=== PATIENT | male | born 1955 | race Caucasian/White ===

== ENCOUNTER 2023-03-24 13:08 | Emergency (ER) | payer MEDICARE ==
[~2023-03-24] VITALS: Ht 177.8 cm; Wt 75.0 kg
[2023-03-24 13:14] VITALS: TEMP 98.7
[2023-03-24] MEDS ORDERED: ketorolac trometh. 30mg/ml inj. IM ONE (15:15)
[2023-03-24] MEDS ORDERED: metoclopramide 5 mg/ml inj IM ONE (15:15)
[2023-03-24] MEDS ORDERED: diphenhydrAMINE 50 mg/ml inj IM ONE (15:15)
[2023-03-24] MEDS ORDERED: METH-797 PO ×4 (17:00→17:13)
[2023-03-24 17:29] VITALS: BP 135/84; PULSE 82; RESP 16; O2SAT 98
== END 2023-03-24 17:43 | disposition home or self-care (01) ==
LOC: ER 13:09
DX: S06.0X0A Concussion without loss of consciousness, initial encounter (principal); R20.0 Anesthesia of skin; X58.XXXA Exposure to other specified factors, initial encounter; Y93.89 Activity, other specified; Y92.89 Other specified places as the place of occurrence of the external cause; Y99.8 Other external cause status
CPT/HCPCS: 70450; 72125; 73030; 96372; 99285; J1200; J1885; J2765